=== PATIENT | female | born 1970 | race Caucasian/White ===

== ENCOUNTER 2017-03-02 18:23 | Inpatient (IN) | payer OTHER ==
[2017-03-02 19:17] LABS: #Basophils 0.1 thou/uL (0.0-0.2); #Eosinphils 0.2 thou/uL (0.0-0.7); #Lymphocytes 2.1 thou/uL (1.20-3.40); #Monocytes 0.7 thou/uL (0.11-0.59); #Neutrophils 8.1 thou/uL (1.40-6.50); %Basophils 0.7 % (0.0-1.0); %Eosinophils 1.6 % (0.0-10.0); %Monocytes 6.3 % (0.0-10.0); Hematocrit 39.6 % (36.0-47.0); Mean Platelet Volume 5.8 fL (7.4-10.4); Red Blood Cell (RBC) Count 4.52 mill/uL (4.20-5.40); White Blood Cell (WBC) Count 11.2 thou/uL (4.8-10.8)
[2017-03-02 19:34] LABS: ALT (SGPT) 15 U/L (8-55); AST (SGOT) 13 U/L (5-34); Alkaline Phosphatase 106 U/L (40-150); Anion Gap 17 mmol/L (10-20); BUN (Urea Nitrogen) 15 mg/dL (7.0-18.7); Bilirubin, Total 0.5 mg/dL (0.2-1.2); Calc. Creatinine Clearance 0 mL/min (70-130); Calcium 9.9 mg/dL (7.8-10.44); Carbon Dioxide 23 mmol/L (22-29); Chloride 98 mmol/L (98-107); Estimated GFR-MDRD 70; Globulin 3.4 g/dL (2.4-3.5); Lipase 15 U/L (8-78); Magnesium 2.1 mg/dL (1.6-2.6); Protein, Total 7.7 g/dL (6.0-8.3)
[2017-03-02 19:35] LABS: Troponin I Less than 0.010 ng/mL (< 0.028)
--- NOTE | 2017-03-02 20:14 | RAD ---
CHEST ONE VIEW: Comparison: 01-24-14 History: Cough. FINDINGS: Portable upright chest. Normal cardiac silhouette. Pulmonary vessels and hilum are normal. No masses or consolidation. No pneumothorax or osseous abnormalities. IMPRESSION: No acute cardiopulmonary process. POS: MARIA GUADALUPE
[2017-03-02] MEDS ORDERED: Enoxaparin Sodium 100 MG/ML SYRINGE ONE (20:34)
[2017-03-02 22:32] LABS: Troponin I Less than 0.010 ng/mL (< 0.028)
[2017-03-02] MEDS ORDERED: Acetaminophen 325 MG TAB PO PRN (23:56)
[2017-03-02] MEDS ORDERED: Ondansetron ODT 4 MG TAB SL PRN (23:56)
[2017-03-02] MEDS ORDERED: Ondansetron HCl/PF 4 MG/2 ML Vial IVP PRN (23:56)
[2017-03-03 00:07] VITALS: BMI 32.9
[2017-03-03] MEDS ORDERED: Diltiazem HCl 125 MG, Admixture Fee 1 EACH in Sodium Chloride 0.9% 100 ML IVPB SCH (00:30)
[2017-03-03] MEDS ORDERED: HumaLOG 300 UNITS/3 ML VIAL SC PRN (00:53)
[2017-03-03] MEDS ORDERED: Dextrose 5% in Water 1,000 ML IV PRN (00:53)
[2017-03-03] MEDS ORDERED: Dextrose 50% Abboject 50 ML SYRINGE IVP PRN (00:53)
[2017-03-03] MEDS: Insulin Regular 300 UNITS/3 ML VIAL SC PRN ×4 (01:11→20:58)
[2017-03-03] MEDS ORDERED: HYDROcodone/Acetaminophen 5/325 mg Tablet PO PRN (01:25)
--- NOTE | 2017-03-03 01:33 | PDOC.EVN ---
Event Note - Event Note Event Note: [id number] H&P Dictated 1. Acute bronchitis 2. DM type 2 3. afib rvR Plan: see orders
[2017-03-03 01:35] LABS: Troponin I Less than 0.010 ng/mL (< 0.028)
[2017-03-03] MEDS: Sodium Chloride 0.9% 1,000 ML IV SCH ×2 (02:06→14:55)
[2017-03-03] MEDS ORDERED: diphenhydrAMINE 25 MG CAP PO PRN (02:45)
--- NOTE | 2017-03-03 08:40 | HP ---
DATE OF ADMISSION: 03/03/2017 CHIEF COMPLAINT: Cough, chest congestion. HISTORY OF PRESENT ILLNESS: Patient is a 46-year-old female with past medical history of diabetes ty pe 2, came to the ER complaining of cough and chest congestion. Patient had cough and chest congesti on for the past 1 week symptoms persisted. Patient was found to have elevated heart rate, so patient was taken to the outside ER. In the outside ER, the patient's heart rate was up to 150s to 160s, so patient was given IV Cardizem push and started on Cardizem drip and transferred here. Patient denie s any chest pain, denies any palpations, denies any nausea, denies any vomiting. Complains of some c ough. Denies any fever, denies any chills. PAST MEDICAL HISTORY: Diabetes type 2. PAST SURGICAL HISTORY: . SOCIAL HISTORY: Denies smoking, denies occasional alcohol, denies any drugs. FAMILY HISTORY: Denies any heart problems. MEDICATIONS: Reviewed. ALLERGIES: PENICILLIN. REVIEW OF SYSTEMS: Constitutional: Denies fever, denies chills. Eyes: Denies any vision problems. Ears: Denies hearing loss. Neck: Denies any neck pain. Cardiovascular: Denies any chest pain. Respiratory: Positive for cough and sputum production. Gas trointestinal: Denies nausea, denies vomiting. Musculoskeletal: Denies any joint deformities. Int egument: Denies any rash. Cranial nerve system: Denies syncope, denies lightheadedness. Psychiat saniya: Denies anxiety. All other review of systems are reviewed and are negative. PHYSICAL EXAMINATION: CONSTITUTIONAL/VITAL SIGNS: At the time of H&P performed, blood pressure is 131/58, pulse ox 100%, h eart rate 77. GENERAL: The patient appears comfortable. HEENT: Pupils are equal, round, and reactive. Anterior nares patent. Teeth intact. Tongue is mois t. NECK: Supple, no JVD. CARDIOVASCULAR SYSTEM: S1, S2 present. Regular rate and rhythm, no murmurs, no rubs, no gallops. RESPIRATORY SYSTEM: No wheezing, no rhonchi. Breath sounds bilaterally. GASTROINTESTINAL: Abdomen is soft, nontender, no guarding, no organomegaly, no masses felt. MUSCULOSKELETAL: No edema. CRANIAL NERVOUS SYSTEM: Awake, follows commands. Strength intact, sensory intact. PSYCHIATRIC: Mood appropriate at this time. LABORATORY DATA: Labs at the time of H&P performed white count 11.2, hemoglobin 13.8, platelet count is 279. BMP shows sodium 134, potassium 4.2, chloride 98, CO2 of 23, BUN of 13, creatinine 0.87, gl ucose 334. Chest x-ray, no recent infiltrate seen. ASSESSMENT AND PLAN: The patient is a 46-year-old female: 1. Paroxysmal atrial fibrillation, . Continue Cardizem drip. We will consult Cardiology to ev aluate the patient. 2. Hypertension. 3. Diabetes type 2, monitor blood sugars. We will do insulin sliding scale. 4. Acute bronchitis. Plan to start the patient on Levaquin 750 mg daily. 5. Deep venous thrombosis and gastrointestinal prophylaxis, SCDs, and PPI. Case was discussed in detail with the patient.
[2017-03-03] MEDS ORDERED: FLU VACC QS2017-18 36 mo. & older 0.5 ML SYRINGE IM ONE (09:00)
[2017-03-03] MEDS ORDERED: Heparin 5,000 UNITS/ML VIAL SC SCH (09:00)
--- NOTE | 2017-03-03 16:30 | CON ---
DATE OF CONSULTATION: 03/03/2017 HISTORY OF PRESENT ILLNESS: The patient is a pleasant 46-year-old woman who presented with congestion and was noted be in rapid irregular heart rate. The patient has no previous cardiac history. The patient has a history of diabetes mellitus. The patient recently developed a cough and congestion. She went to the emergency room and noted to have a rapid heart rate and was transferred for further evaluation. The patient denied having any palpitation. The patient denied having any chest discomfort. The patient does report that when she does significant physical exertion, she developed dyspnea. The patient denies having any chest discomfort with exertion. The patient denies having any PND or orthopnea. PAST MEDICAL HISTORY: Diabetes mellitus. PAST SURGICAL HISTORY: . SOCIAL HISTORY: Nonsmoker. FAMILY HISTORY: Father had factor V deficiency and of clot. No history of coronary artery disease. MEDICATIONS: Metformin 500 b.i.d. ALLERGIES: She is allergic to PENICILLIN. REVIEW OF SYSTEMS: Ten-point system otherwise unremarkable. No history of easy bruising or bleeding, bright red blood per rectum. PHYSICAL EXAMINATION: GENERAL: Obese woman, in no acute distress. VITAL SIGNS: Blood pressure was 131/56, heart rate is 90 and regular. NECK: No jugular venous distention. LUNGS: Clear to auscultation. HEART: Regular rate and rhythm, normal S1, S2, no murmurs. ABDOMEN: Nondistended. EXTREMITIES: Showed trace edema. SKIN: Warm and dry. NEUROLOGIC: Nonfocal. VASCULAR: Radial pulses are 2+. LABORATORY RESULTS: Sodium 134, potassium 4.2, chloride 98, bicarbonate 23, BUN 15, creatinine 0.87, glucose 332, troponin less than 0.1. White blood cell count 11.2, hemoglobin 13.8, hematocrit 39.6, platelets are 279. Her EKG revealed her to have atrial fibrillation with a nonspecific T-wave abnormality. EKG revealed normal sinus rhythm with right atrial enlargement. Echocardiogram revealed normal left systolic function with an ejection fraction 55% to 60%. IMPRESSION: 1. New onset atrial fibrillation. 2. Diabetes mellitus. 3. Obesity. This patient presents with new onset atrial fibrillation. She has a CHADS-VASc score of 2 (female sex and diabetes mellitus). We will start the patient on Eliquis. We will add low dose beta dinah therapy. We will follow this patient with you through hospitalization. PLAN: 1. Start Eliquis 5 mg p.o. b.i.d. 2. Start Toprol 25 XL daily. 3. Discontinue Cardizem. MTDD
[2017-03-03] MEDS: Apixaban 5 MG TAB PO SCH (20:56)
[2017-03-04] MEDS: Insulin Regular 300 UNITS/3 ML VIAL SC PRN ×2 (06:01→12:58)
--- NOTE | 2017-03-04 07:53 | EKG ---
Test Reason : Blood Pressure : / mmHG Vent. Rate : 086 BPM Atrial Rate : 086 BPM P-R Int : 126 ms QRS Dur : 082 ms QT Int : 366 ms P-R-T Axes : 060 094 069 degrees QTc Int : 437 ms Normal sinus rhythm Right atrial enlargement (p wave Lead II) Rightward axis Borderline ECG No previous ECGs available Confirmed by OLVIN BLUNT ([id number]) on 03/04/2017 7:53:19 AM Referred By: GENNY Confirmed By:OLVIN BLUNT
[2017-03-04] MEDS: Apixaban 5 MG TAB PO SCH (08:09)
[2017-03-04 12:26] VITALS: BP 122/56; TEMP 98.1
== END 2017-03-04 14:30 | disposition home or self-care (01) | DRG 310 ==
LOC: SCSER 18:23 → CCU 22:55 → 2NO 03-04 09:33
PROVIDERS: ADMIT Internal Medicine; ATTEND Internal Medicine
DX: I48.0 Paroxysmal atrial fibrillation (principal); I10 Essential (primary) hypertension; E11.9 Type 2 diabetes mellitus without complications; J20.9 Acute bronchitis, unspecified; Z83.2 Family history of diseases of the blood and blood-forming organs and certain disorders involving the immune mechanism; E66.9 Obesity, unspecified; Z68.32 Body mass index [BMI] 32.0-32.9, adult
CPT/HCPCS: 36415; 36416; 71010; 80053; 82553; 83690; 83735; 84443; 84484; 85025; 93005; 93010; 93306; 96361; 96365; 96366; 96372; 96376; A4216; J1644; J1650; J1815; J1956; J7050

== ENCOUNTER 2017-06-10 08:33 | Emergency (ER) | payer OTHER ==
--- NOTE | 2017-06-10 09:01 | RAD ---
PORTABLE CHEST 1 VIEW: Date: 06/10/17 Time: 0858 hours HISTORY: Atrial fibrillation and chest pain. FINDINGS: Comparison made with exam of 03/02/17. The heart size is normal. The lungs are well expanded without focal areas of consolidation, pneumotho rax, pastor pulmonary edema, or pleural effusions. IMPRESSION: No radiographic evidence of acute cardiopulmonary process. POS: C
[2017-06-10 09:18] LABS: ALT (SGPT) 16 U/L (8-55); AST (SGOT) 11 U/L (5-34); Albumin 4.2 g/dL (3.5-5.0); Alkaline Phosphatase 99 U/L (40-150); Anion Gap 12 mmol/L (10-20); BUN (Urea Nitrogen) 12 mg/dL (7.0-18.7); Bilirubin, Total 0.4 mg/dL (0.2-1.2); CK (CPK) 28 U/L (29-168); Calc. Creatinine Clearance 0 mL/min (70-130); Calcium 9.6 mg/dL (7.8-10.44); Carbon Dioxide 27 mmol/L (22-29); Chloride 103 mmol/L (98-107); Estimated GFR-MDRD 74; Globulin 2.7 g/dL (2.4-3.5); Glucose 262 mg/dL (70-105); Protein, Total 6.9 g/dL (6.0-8.3); Sodium 138 mmol/L (136-145)
[2017-06-10 09:19] LABS: #Eosinphils 0.1 thou/uL (0.0-0.7); #Lymphocytes 1.2 thou/uL (1.20-3.40); #Monocytes 0.4 thou/uL (0.11-0.59); #Neutrophils 6.9 thou/uL (1.40-6.50); %Basophils 0.4 % (0.0-1.0); %Eosinophils 1.2 % (0.0-10.0); %Lymphocytes 13.7 % (21.0-51.0); %Monocytes 4.3 % (0.0-10.0); %Neutrophils 80.4 % (42.0-75.0); Hemoglobin 12.3 g/dL (12.0-16.0); Mean Corpuscular HGB CONC 33.7 g/dL (32.0-36.0); Mean Corpuscular Hemoglobin 31.3 pg (27.0-31.0); Mean Corpuscular Volume 92.8 fl (81.0-99.0); Mean Platelet Volume 6.3 fL (7.4-10.4); Platelet Count 291 thou/uL (130-400); RBC Distribution Width 12.7 % (11.5-14.5); Red Blood Cell (RBC) Count 3.92 mill/uL (4.20-5.40); White Blood Cell (WBC) Count 8.6 thou/uL (4.8-10.8)
[2017-06-10 09:20] LABS: CKMB 0.6 ng/mL (0-6.6); Troponin I Less than 0.010 ng/mL (< 0.028)
[2017-06-10] MEDS ORDERED: Acetaminophen 500 MG TAB ONE (09:25)
== END 2017-06-10 10:31 | disposition home or self-care (01) ==
LOC: ERS 08:33
DX: R07.9 Chest pain, unspecified (principal); E11.9 Type 2 diabetes mellitus without complications; E78.5 Hyperlipidemia, unspecified; Z79.84 Long term (current) use of oral hypoglycemic drugs; Z79.899 Other long term (current) drug therapy
CPT/HCPCS: 71045; 80053; 82550; 82553; 84484; 85025; 93005; 94760